=== PATIENT | female | born 1980 | race Caucasian/White ===

== ENCOUNTER → 2022-12-21 | Outpatient (CLI) | payer BC, SELFPAY ==
--- NOTE | 2022-12-21 16:09 | US_ITS ---
ACR Level 3 findings have been noted. An addendum which confirms receipt of the report will follow. INDICATION: Menorrhagia EXAMINATION: Ultrasound US Pelvis Non OB Complete With Transvaginal Imaging TECHNIQUE: Transabdominal and transvaginal pelvic ultrasound was performed. Grayscale, spectral waveform, and color flow Doppler evaluation of the adnexa. COMPARISON: None. FINDINGS: UTERUS: Anteverted. The uterus measures 18.1 x 6.7 x 11 cm. 3.1 x 2.7 x 3.3 cm fibroid. The endometrial stripe measures 12.5 mm in AP diameter which is within normal limits. RIGHT OVARY: A right adnexal heterogeneous mass with prominent Doppler flow measuring 17 x 11.4 x 15.8 cm obscures the ovary and displaces the uterus to the left. LEFT OVARY: 3.4 x 1.6 x 1.8 cm. Non-enlarged, normal echogenicity. There is normal arterial inflow and venous outflow present in the left ovary. Urinary bladder measures 723 mL. FREE FLUID: None. US/Pelvic (Non ) IMPRESSION: 17 cm right adnexal mass is suspicious for ovarian cancer. Recommend pelvic MRI. Overdistended urinary bladder. Electronically Signed: Anjel Banks MD at 16:56 EDT ,
== END | disposition home or self-care (01) ==
PROVIDERS: PCP Nurse Practitioner Family; Referring Provider Nurse Practitioner Women's Health; Visit Provider Nurse Practitioner Women's Health
DX: N92.0 Excessive and frequent menstruation with regular cycle (principal)
CPT/HCPCS: 76830; 76856

== ENCOUNTER → 2023-01-02 | Outpatient (CLI) | payer BC, SELFPAY ==
--- NOTE | 2023-01-02 17:45 | MRI_ITS ---
STUDY: MR PELVIS WITH T WITHOUT CONTRAST REASON FOR EXAM: Female, 42 years old. mass TECHNIQUE: Standardized fat and water weighted pulse sequences were obtained in all 3 orthogonal planes, pre-and post contrast administration. IV CLARISCAN 17mL was administered for the contrast portion of the examination. COMPARISON: December 21, 2022 pelvic ultrasound. FINDINGS: Left ovary measures 2.7 x 1.2 x 2.0 cm with multiple subcentimeter follicles, coronal series 9 image 10 to the left of the uterine body. Right ovary is located to the right of the uterine fundus, coronal series 9 image 9 and axial series 4 image 1 and 2, measuring 3.7 x 1.8 x 1.6 cm with dominant 1.4 cm and smaller 0.6 cm follicle. The uterus is deviated leftward with multiple nabothian cysts measuring up to 1.2 cm in size. Right anterior uterine body 3.0 cm myometrial enhancing fibroid.w the transitional zone measures 10 mm, mostly homogeneous with diffuse scattered subendometrial cysts. There is loss of the right transitional zone at the lower uterine segment and suggestion of contiguous myometrium extending to massive central pelvic solid mass (coronal series 9 image 16 and axial STIR series 6 image 23). The central pelvic solid enhancing mass measures 19.1 x 16.9 x 9.6 cm and fills remainder of the pelvis, displacing the uterus leftward, without evidence of invasion of surrounding structures. The mass does abut the inferior margin of the right ovary, reference coronal image 9 series 9 without surrounding claw-like ovarian parenchyma, favored to be separate from the ovary on axial series 4. There is a trace amount of free fluid in the right pelvis. No evidence of mass invasion within surrounding structures. 4 mm posterior inferior vaginal cyst compatible in location with Bartholin''s gland cyst. Unremarkable bladder, displaced anteriorly by the mass with homogeneous wall. Bowel is displaced peripherally without focal wall thickening. No acute osseous finding. Mild umbilical diastases with fat-containing umbilical hernia, without inflammation MRI/Pelvis W/WO Contrast IMPRESSION: Findings most consistent with 19.1 cm enhancing pedunculated subserosal lobulated leiomyoma extending from the right inferior uterine body. The uterus is displaced leftward and cephalad by the mass. Additional fundal uterine fibroid is also noted. No overt mass invasion of surrounding structures to suggest leiomyosarcoma though this is not excluded by imaging. 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 Right ovary approximates the mass though favored to be separate from it in the central lower abdomen adjacent to the uterine fundus. Normal ovarian follicles. Trace right pelvic free fluid. Small cervical nabothian cysts and posterior paravaginal likely Bartholin''s gland cyst without surrounding inflammation. Electronically Signed: Nasim Berry MD at 9:29 EDT ,
[2023-01-04 08:12] LABS: Carcinoembryonic Antigen 2.2 ng/mL (0.0-4.7)
== END | disposition home or self-care (01) ==
LOC: MRI 16:12
PROVIDERS: PCP Nurse Practitioner Family; Referring Provider Nurse Practitioner Women's Health; Visit Provider Nurse Practitioner Women's Health
DX: N94.89 Other specified conditions associated with female genital organs and menstrual cycle (principal)
CPT/HCPCS: 36415; 72197; 82378; 86304; A9575

== ENCOUNTER → 2023-01-07 | Outpatient (CLI) | payer BC, SELFPAY ==
[2023-01-07 14:39] LABS: Absolute Lymphocyte Count 1.41 X10^3/uL (0.83-4.51); Absolute Neutrophil Count 12.7 X10^3/uL (2.0-7.7); Basophil# 0.05 X10^3/uL; Basophil% 0.3 % (0-1); Eosinophil# 0.01 X10^3/uL; Eosinophils% 0.1 % (0-5); Hematocrit 51.4 % (37-47); Hemoglobin 16.8 g/dL (12.0-15.0); Lymphocyte # 1.41 X10^3/ul (0.83-4.51); Lymphocyte % 9.2 % (19-41); Mean Corp Hgb Conc 32.7 g/dL (32-36); Mean Corpuscular Hgb 29.6 pg (27.0-32.0); Mean Corpuscular Volume 90.5 fL (81-99); Mean Platelet Vol. 11.1 fl (6.2-12.0); Monocyte# 1.07 X10^3/uL; NRBC Flagged by Analyzer 0 % (0-5); Neutrophil # 12.68 X10^3/uL (2.7-7.7); Neutrophil % 83.1 % (47-70); Platelet Count 235 K/mm3 (150-450); RBC Distribution Width CV 12.8 % (11.6-14.6); RBC Distribution Width SD 42.5 fl (35.1-43.9); Red Blood Count 5.68 M/mm3 (4.2-5.4); White Blood Count 15.3 K/mm3 (4.4-11.0)
[2023-01-07 15:01] LABS: AST(SGOT) 17 U/L (15-37); Alanine Aminotransfer ALT/SGPT 24 U/L (13-56); Albumin, Serum 3.8 g/dL (3.2-5.0); Alkaline Phosphatase 78 U/L (45-117); Anion Gap 10 (5-15); BUN 7 mg/dL (7-18); BUN/Creat Ratio 9.2 RATIO (10-20); Calcium,Total 9.4 mg/dL (8.5-10.1); Chloride 105 mmol/L (98-107); Creatinine, Serum 0.76 mg/dL (0.55-1.02); EST Glomerular Filtration Rate 88 mL/min (>60); Est Glom Filt Rate - Afr Amer 107 mL/min (>60); Globulin 3.9 g/dL (2.2-4.2); Glucose 116 mg/dL (74-106); Potassium 3.6 mmol/L (3.5-5.1); Protein, Total 7.7 g/dL (6.4-8.2); Sodium Level 139 mmol/L (136-145)
[2023-01-07 15:29] LABS: NATERA MAILED SPECIMEN
== END | disposition home or self-care (01) ==
PROVIDERS: PCP Nurse Practitioner Family; Referring Provider Obstetrics & Gynecology; Visit Provider Obstetrics & Gynecology
DX: Z13.71 Encounter for nonprocreative screening for genetic disease carrier status (principal); Z80.3 Family history of malignant neoplasm of breast
CPT/HCPCS: 36415; 80053; 85025

== ENCOUNTER 2023-01-22 09:12 | Inpatient (IN) | payer BC, SELFPAY ==
[2023-01-16 12:45] LABS: Hematocrit 51.4 % (37-47); Hemoglobin 16.5 g/dL (12.0-15.0); Mean Corp Hgb Conc 32.1 g/dL (32-36); Mean Corpuscular Hgb 29.8 pg (27.0-32.0); Mean Corpuscular Volume 92.8 fL (81-99); Mean Platelet Vol. 11.5 fl (6.2-12.0); Platelet Count 207 K/mm3 (150-450); RBC Distribution Width CV 13.1 % (11.6-14.6); RBC Distribution Width SD 44.5 fl (35.1-43.9); Red Blood Count 5.54 M/mm3 (4.2-5.4); White Blood Count 9.1 K/mm3 (4.4-11.0)
[2023-01-22] VITALS (22 sets, daily range): BP systolic 92–146; BP diastolic 45–86; PULSE 66–140; RESP 16–20; TEMP 36.3–37.3; O2SAT 95–100; BMI 30.8; BMI 31.6
--- NOTE | 2023-01-22 06:07 | PCM.HP.BLA ---
History and Physical Intake Vital Signs ? 01/07/2313:02 01/07/2313:04 Height 5 ft 3 in 5 ft 3 in Weight: 175 lb 4 oz ? BMI 31.0 ? BP 128/83 H ? Intake Visit Reasons:?hyst. 9cm fibroid Community Health Program Representative Required: No Allergies erythromycin base Allergy (Mild, Verified 01/07/23 13:02) Rash Medications cholecalciferol (vitamin D3) 125 mcg (5,000 unit) capsule 125 mcg PO DAILY 10/15/22 [History Confirmed 10/15/22] calcium carbonate 600 mg calcium (1,500 mg) tablet (Calcium) 600 mg PO DAILY 01/07/23 [History Confirmed 01/07/23] ferrous sulfate 325 mg (65 mg iron) tablet (Feosol) 975 mg PO DAILY 01/07/23 [History Confirmed 01/07/23] fluticasone propionate 50 mcg/actuation nasal spray,suspension 1 spray intranasal DAILY PRN 01/07/23 [History Confirmed 01/07/23] medroxyprogesterone 5 mg tablet 5 mg PO .COMPLEX #45 tabs 01/07/23 [Rx Confirmed 01/07/23] PFSH Medical History?(Updated 01/14/23 @ 05:[address] Fara Pack MD) Anemia Vitamin D deficiency Surgical History?(Updated 10/15/22 @ 14:17 by Shruthi Pederson) S/P S/P ovarian cystectomy Family History?(Updated 10/15/22 @ 14:18 by Shruthi Pederson) Mother?? Myocardial infarction Social History?(Updated 10/15/22 @ 14:20 by Shruthi Pederson) household members:? spouse and children housing:? house number of children:? 2 current occupational status:? 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 Never smoker alcohol intake:? current alcohol intake frequency: holidays/special occasions only substance use type:? does not use seatbelt use:? always do you feel safe at home:? Yes additional social history:? - [employer]- Owns construction company HPI hyst. 9cm fibroid Details: KERI YUAN is a 42 year old who presents for abdominal pain and pelvic pressure, enlarged fibroid uterus.? she has a history of a fibroid in the past but now has enlarged to above her umbilicous and is causing daily significant pain and very heavy somewhat irregular menses.? she is due to start menses in a week. she feels an abdominal mass now and is tender, achy with low back pain referred and discomfort. Female Reproductive History Last Menstrual Period: 10/13/22 Questions: metorrhagia: Yes, sexually active: Yes, dyspareunia: No and PCB: No History ? ? ? 3 ? Elective abortions ? Hx Para ? ? ? 3 ? Spontaneous abortions ? Hx # Term Pregnancies ? Ectopic pregnancies ? Hx # Pregnancies ? Multiple births ? # of living children ? Past Pregnancies Del. Date Name GA/Weeks Outcome Route Bth Weight Infant Gen Labor Lgth Anesthesia Del Locatn Provider FOB Unknown Mayda 1996 ? Unknown Judy 2001 ? Unknown Joe 2004 ? ROS Const Constitutional: Reports fatigue; Denies weight gain or weight loss ENT ENT: Reports system reviewed and no additional complaints, except as documented Cardio Card: Denies chest pain Resp Resp: Denies cough or dyspnea GI GI: Reports as per HPI, abdominal pain and nausea; Denies constipation or vomiting : Denies nipple discharge, urinary frequency, urinary incontinence, urinary hesitancy, urinary urgency, vaginal discharge, vaginal dryness, vaginal odor or vaginal pruritus Musc Musc: Reports back pain; Denies arthralgias or muscle weakness Skin Skin/Breast: Denies alopecia, change in hair, dry skin, breast mass, breast pain, breast skin changes or nipple discharge Neuro Neuro: Reports system reviewed and no additional complaints, except as documented Psych Psych: Reports system reviewed and no additional complaints, except as documented Endo Endo: Denies cold intolerance, excessive sweating, heat intolerance or polydipsia Topher/Lymph Hematologic/Lymphatic: Denies easy bleeding, Denies easy bruising and Denies lymphadenopathy Exam Const General: cooperative, healthy appearing, comfortable and no acute distress Orientation: alert [facility] Head: normal to inspection and normocephalic Ears: hearing grossly normal bilaterally and external ears normal Nose: external nose normal and nares normal Face and sinus: normal facial exam Neck Neck: normal visual inspection and no lymphadenopathy Thyroid: thyroid normal Chest Chest palpation & inspection: normal inspection of the chest Resp Effort & Inspection: normal respiratory effort Auscultation: clear to auscultation bilaterally Cardio Rate: regular rate Rhythm: regular rhythm Heart Sounds: S1 normal and S2 normal GI Inspection: normal to inspection and non-distended Palpation: soft, no hepatosplenomegaly and mass (enlarged uterus 23 cm) Musc Other: gross motor intact no deficits, full bilateral strength Skin General: no rashes or lesions noted Neuro General: patient alert, patient awake, moves all extremities and no focal motor deficits Motor: muscle tone normal throughout Extrem General: normal to inspection and no pedal edema Psych Appearance: grossly normal Mental Status: mental status grossly normal Affect: normal affect Speech and Movement: speech and movement normal Coding Level of Care Code Off vis,est,level 5 Diagnoses Uterine fibroid? D25.9 Menorrhagia with regular cycle? N92.0 Assessment and Plan Assessment and Plan (1) Uterine fibroid: ?Status:?Acute ?Comment: MRI:19cm pedunculated, plan vertical skin incision, TAHBS. (2) Menorrhagia with regular cycle: ?Status:?Acute ? ? ? Orders: Orders Comprehensive Metabolic Profil 01/07/23 N93.9 - Abnormal uterine and vaginal bleeding, unspecified ? CBC W/Diff, Automated 01/07/23 N93.9 - Abnormal uterine and vaginal bleeding, unspecified ? Referrals Gynecologic Oncology ? D25.9 - Leiomyoma of uterus, unspecified, N92.0 - Excessive and frequent menstruation with regular cycle ? Medications: New medroxyprogesterone ?once daily and if you start to bled increase to twice daily 45 tabs 0RF ? ? Plan clearance by gynecology oncology first, and if able then will proceed with local surgery.? plan vertical abdominal hysterectomy After discussing the patient's diagnosis and treatment plan options, patient wishes to proceed with surgical management.? I have discussed with the patient the risks, benefits, and alternatives of the procedure which include but are not limited to risks of anesthesia, bleeding, infection, possible damage to bowel, bladder, or surrounding vasculature which could lead to additional surgery to evaluate any complications.? Patient agrees to procedure and wishes to proceed.? ACOG/uptodate references given for additional information regarding procedure.? UPDATE- I have seen the patient and performed any clinically relevant updates to the history and physical exam. Fara Pack MD
[2023-01-22 09:43] LABS: Internal QC Validated? YES +Cl - CLEAR BKGD; Pregnancy, Urine Negative Negative
[2023-01-22] MEDS: dexAMETHasone 4 MG/ML Vial 8 MG IV (09:45)
[2023-01-22] MEDS: Lactated Ringers 1,000 ML 40 ML IV (09:49)
[2023-01-22] MEDS: Magnesium 1 GM over 15 mins IV (09:49)
[2023-01-22] MEDS: Celecoxib 200 MG Capsule 400 MG PO (10:14)
[2023-01-22] MEDS: Phenazopyridine 95 MG Tablet 190 MG PO (10:14)
[2023-01-22] MEDS: Acetaminophen 500 MG Tablet 1000 MG PO ×2 (10:14→22:08)
[2023-01-22] MEDS: Gabapentin 600 MG Tablet PO (10:14)
[2023-01-22] MEDS: Enoxaparin 40 MG/0.4 ML Syringe SC (10:15)
[2023-01-22] MEDS: Scopolamine 1mg/72hr Patch 1 PATCH TD (10:15)
[2023-01-22 10:18] LABS: Absolute Lymphocyte Count 0.89 X10^3/uL (0.83-4.51); Absolute Neutrophil Count 7.1 X10^3/uL (2.0-7.7); Basophil# 0.03 X10^3/uL; Basophil% 0.3 % (0-1); Eosinophil# 0.02 X10^3/uL; Eosinophils% 0.2 % (0-5); Hematocrit 47.5 % (37-47); Hemoglobin 16.1 g/dL (12.0-15.0); Lymphocyte # 0.89 X10^3/ul (0.83-4.51); Lymphocyte % 10.4 % (19-41); Mean Corp Hgb Conc 33.9 g/dL (32-36); Mean Corpuscular Hgb 30.5 pg (27.0-32.0); Mean Platelet Vol. 10.9 fl (6.2-12.0); Monocyte# 0.54 X10^3/uL; Monocyte% 6.3 % (0-10); NRBC Flagged by Analyzer 0 % (0-5); Neutrophil # 7.09 X10^3/uL (2.7-7.7); Neutrophil % 82.7 % (47-70); Platelet Count 196 K/mm3 (150-450); RBC Distribution Width SD 42.9 fl (35.1-43.9); Red Blood Count 5.28 M/mm3 (4.2-5.4); White Blood Count 8.6 K/mm3 (4.4-11.0)
--- NOTE | 2023-01-22 10:21 | OP.PCM_ITS ---
Problems Associated Problem List Diagnoses (1) Genetic testing of female: (2) Menorrhagia with regular cycle: (3) Uterine fibroid: Report of Operation Date of Procedure: 01/22/23 Pre-Operative Diagnosis: see problem list Post-Operative Diagnosis: same Surgery/Procedure Performed:: TAHBS cystoscopy 4 hours of surgery, primarily due to adhesiolysis around fibroid and dissection of fibroid and isolation of vasulature Description of Surgical Findings:: Enlarged fibroid uterus right broad ligament fibroid extending off of the right cervix with attachments laterally and inferiorly and to the vesicouterine peritoneum with pelvic congestion. Normal ovaries bilaterally. Surgeon: Fara Pack supervisor joiners: Oxana Bo supervisor joiners: Petra Pat Specimen's removed: uterus tubes uterus 260 g fibroid 1140 g Estimated Blood Loss (mL): 1200 Fluids Replaced: crystalloid Description of Procedure: The patient was taken to the operating room and placed under general anesthesia in the dorsal supine position. She was prepped and draped in the normal sterile fashion. Kamara catheter was placed in the bladder SCDs were on and preoperative antibiotics were given. A Pfannenstiel skin incision was made with the scalpel and carried through the underlying layer of the fascia with the scalpel, fascia was nicked in the midline, incision extended laterally. Rectus bellies were di ssected off superiorly and inferiorly sharply and bluntly and peritoneum entered digitally, incision stretched laterally and the retractor was placed after the bowel was packed away. The uterus was identified and noted to be significantly enlarged approximately 12-14 cm and displaced off to the left side with normal ovaries bilaterally and an extremely large, bigger than the uterus, right broad ligament fibroid was noted taking up the entire right hemipelvis the into the ovarian fossa and attaching down the entire right length of the cervix extending down to the level of the cervix. Extended anteriorly across the front of the uterine corpus distorting the vesicouterine peritoneum and significant pelvic congestion and increased vasculature was noted in all the areas. 1 small omental to intra-abdominal wall adhesion was taken down with the LigaSure. It was felt like it was able to be mobilized and therefore with consultation with another physician decision was made to proceed with hysterectomy as previously decided. The ovaries were noted to be within normal limits. The fallopian tubes were elevated bilaterally and the mesosapinx transected with the ligasure. The round ligaments were transected bilaterally and suture ligated and the broad ligament was opened up and the utero-ovarian ligament vessels were clamped with the LigaSure sealer device. The peritoneum was opened up over the broad ligament fibroid and 3 extensive adhesiolysis the fibroid was continued to be shelled out. This was done with both blunt sharp and electrocautery dissection. Different vascular pedicles were encountered and either transected with the LigaSure device or clamped cut and suture-ligated with 0 Monocryl suture. Good attention was paid to keeping the bladder off of the fibroid in the uterine corpus. Attention was also paid to try and operate medially to where the ureter was felt to be located since the anatomy was so distorted due to the enlarged broad ligament fibroid. Extensive dissection which required 2-2 and half hours alone to be able to skeletonize and shell out the fibroid and skeletonized their vascular attachments in multiple areas both in the cul-de-sac, the cervical attachment, and the vesicouterine peritoneum and pelvic sidewall on the right side. Eventually the uterine arteries were clamped cut and either ligated with LigaSure were suture-ligated with the Monocryl bilaterally down to the level of the cervix. The fibroid was amputated off of the cervix which was noted to be significantly elongated. Good visualization of the bladder flap was made and Z clamps were used to clamp underneath the mucosa where the cervixes and the uterus was amputated off the pedicles. Vaginal cuff sewn with 0 Monocryl and then oversewn with 0 Vicryl. Some areas of pelvic congestion and bleeding were noted over the areas of dissection where the fibroid was present in the vesicouterine peritoneum and in the right pelvic sidewall and therefore stitches of 3-0 Vicryl and 3-0 Monocryl were used to obtain excellent hemostasis. The areas were oversewn due to the raw appearance. Floseal was also applied. The bladder was backfilled with blue dye and no spill was noted intra-abdominally. Cystoscopy was performed and bilateral ureteral spray and bladder integrity were confirmed. Again the pelvis was checked and some areas were noted to still be raw and had bleeding over the cuff and bladder peritoneum. They were oversewn with 2-0 Vicryl. Another layer of Floseal was applied and again the area checked and noted to have excellent hemostasis. The peritoneum was closed with 3-0 Monocryl fascia closed with 0 PDS subcutaneous tissue reapproximated with 3- 0 Monocryl and the skin closed with 4-0 Monocryl. Patient was awoken and taken recovery in stable condition. Multi Select Codes Urinary/Genital Urinary/Genital CPT Codes: 01517 Cystoscopy and [address]003 DERRICK
--- NOTE | 2023-01-22 10:25 | PCM.DC ---
Discharge Instructions Diet Discharge Diet: No restrictions Activity Discharge Activity: Return to Normal Activity, May Drive (when pain free and off narcotic pain meds), May Shower and May Take a Tub Bath (in 4 weeks) May resume sexual activity in: 6 weeks Weight Bearing Status: Full weight bearing Lifting Restrictions: under 30 lbs for 6 weeks Dressing / Incision Call your doctor if your incision/area has: Continuous Slow Oozing, Sudden Increased Bleeding, Increased Pain/ Swelling, Increased Redness, Foul Smelling Discharge and - Call your doctor if you observe: Fever of 101 or Higher, Using more than 1 pad per hour, Shortness of breath, Chest pain and Uncontrolled pain Suture Line Care: Avoid Pulling/Pushing and Avoid Pinching/Bending Change Dressing in: 1 week (leave open to air after removed) Remove Dressing in: 1 week (if present) Cleanse incision/area with: Soap & Water and Keep Dressing Clean & Dry Follow Up Care Please Follow Up With: Fara Pack MD When: Call to make an appointment with your doctor for a postop visit in 2 and 6 weeks. Test Results: Test results from this visit will be discussed in further detail at your follow-up appointment, if applicable. Discharge Plan Admission Admit Date/Time: 01/22/23 09:12 Attending Provider: Fara Pack Primary Care Provider: Karley Ogden Discharge Orders/Prescriptions Prescriptions: New oxycodone-acetaminophen [Percocet] 5-325 mg tablet 1 tab PO Q6H PRN (Reason: pain) 7 Days Qty: 20 0RF naproxen [naproxen] 500 mg tablet 500 mg PO BID PRN PRN (Reason: Pain) Qty: 30 1RF Continued ferrous sulfate [Feosol] 325 mg (65 mg iron) tablet 975 mg PO DAILY calcium carbonate [Calcium 600] 600 mg calcium (1,500 mg) tablet 600 mg PO DAILY fluticasone propionate 50 mcg/actuation spray,suspension 1 spray intranasal DAILY PRN (Reason: ALLERGIES) Rx Instructions: administer into each nostril ergocalciferol (vitamin D2) 1,250 mcg (50,000 unit) capsule 50,000 unit PO MO Label Comments: take 1 capsule by mouth every week Discontinued medroxyprogesterone 5 mg tablet 5 mg PO .COMPLEX Rx Instructions: three per day since 01/19/2023 Referrals / Follow Up: Karley Ogden, PRODUCT MANAGER-C [Primary Care Provider] -
[2023-01-22] MEDS: Cefazolin 2 GM in 0.9% Normal Saline 100 ML IV ×2 (10:37→19:16)
[2023-01-22 11:10] LABS: Bedside Glucose 130 mg/dL (74-106)
--- NOTE | 2023-01-22 11:10 | HYST_PTH ---
PATIENT: KERI YUAN LOC: MS3 U#:[id number] AGE/SX: 42/F ROOM: [facility] RE01/22/[address]: Dr. Fara Pack MD : 1980 BED: 1 DIS: 01/24/2023 SPEC #: [id number] RECD: 01/22/23 14:31 STATUS: ANAMARIA WELDON #: [id number] TASNEEM: 01/22/23 11:[address]: Fara Pack DEPT: SURGICAL PATHOLOGY RECD BY: Nimisha Landry ENTERED: 01/23/23 07:47 SP TYPE: HYSTERECT OTHR DR: Karley Ogden, MANAGER LABOR DELIVERY-C Tissues: Uterus, NOS Procedures: Surgery Specimen Level V HEADER OPERATION: ERAS, total abdominal hysterectomy, salpingectomy PRE-OP DIAGNOSIS: Uterine fibroid, menorrhagia with regular cycle TISSUE SUBMITTED: Uterus, cervix, bilateral fallopian tubes, fibroid MICROSCOPIC DIAGNOSIS Uterus, cervix, bilateral fallopian tubes and fibroid, total abdominal hysterectomy and bilateral salpingectomy: Cervix ? mild chronic cystic cervicitis. - Benign endocervical polyp (0.6 cm in greatest dimension). Endometrium ? focal changes consistent with exogenous hormone effect. Myometrium ? leiomyomas (largest measuring 15.0 cm in greatest dimension). - Adenomyosis. Bilateral fallopian tubes - no pathologic diagnosis. SJ:kush 01/24/2023 MICROSCOPIC DESCRIPTION Slides are reviewed. GROSS DESCRIPTION Received in fixative is one container labeled with the patient's name and designated uterus, cervix, bilateral fallopian tubes and fibroid. The specimen consists of a hysterectomy specimen consisting of uterus with cervix, detached nodular tissue and detached bilateral fallopian tubes. The uterus with cervix and detached nodular mass weighs 1116 gm. Detached nodular mass weighs 855 gm. A focal area of defect is noted in the uterus and the anterior surface at the lower uterine segment, most likely the site of detached nodular mass. The uterus with cervix measures 15.0 x 8.5 x 8.5 cm. Detached nodular mass measures 15.0 x 15.0 x 10.0 cm. The serosal surface is roegrs, glistening. The ectocervical mucosa is unremarkable. The external os is pinpoint in contour. The endocervical canal measures 5.0 cm in length and the endocervical mucosa is rogers, glistening and unremarkable. Sections of the cervix reveal a few cysts filled with mucoid material. A small polyp is noted in the posterior endocervical canal measuring 0.6 cm in greatest dimension. The triangular endometrial cavity measures 6.0 cm in length and up to 3.0 cm in width. The endometrium measures up to 0.2 cm in thickness. Sections of the uterine wall reveal multiple intramural nodular masses. The largest mass measures 3.0 cm in greatest dimension. The uninvolved uterine wall measures up to 3.0 cm in thickness. The detached fallopian tubes are not identified as right or left and measures 4.0 cm in length and 0.8 cm in diameter and 5.0 cm in length and 0.9 cm in diameter. The fimbrial end is identified. Sections reveal unremarkable cut surfaces. Stationary Steam Engineer sections are submitted in 12 cassettes as follows: 1 - anterior cervix, 2??posterior cervix and endocervical polyp, 3 & 4 - anterior uterine wall, 5 & 6 - posterior uterine wall, 7 - largest intramural mass, 8??smaller intramural nodular masses, 9 & 10 - detached nodular mass, 11 - one fallopian tube, 12??second fallopian tube. / GERALDO:kush 01/23/2023 TC:1 CPT: 48159
[2023-01-22] MEDS: Vasopressin 20 UNITS/ML Vial (13:00)
[2023-01-22] MEDS: Isosulfan Blue 1% 5 ML Vial (14:00)
[2023-01-22] MEDS: Ondansetron 4 MG/2 ML Vial IV (15:06)
[2023-01-22] MEDS: Ketorolac 30 MG/ML Syringe IV ×2 (15:55→22:09)
[2023-01-22 17:33] LABS: Hematocrit 37.7 % (37-47); Hemoglobin 12.2 g/dL (12.0-15.0); Mean Corp Hgb Conc 32.4 g/dL (32-36); Mean Corpuscular Hgb 29.6 pg (27.0-32.0); Mean Corpuscular Volume 91.5 fL (81-99); Mean Platelet Vol. 11.3 fl (6.2-12.0); Platelet Count 176 K/mm3 (150-450); RBC Distribution Width SD 42.6 fl (35.1-43.9); Red Blood Count 4.12 M/mm3 (4.2-5.4); White Blood Count 25.1 K/mm3 (4.4-11.0)
[2023-01-22] MEDS: Lactated Ringers 500 ML 999 ML IV (18:20)
--- NOTE | 2023-01-22 18:22 | CT_ITS ---
STUDY: CTA CHEST REASON FOR EXAM: Female, 42 years old. TACHY POSTOP RADIATION DOSAGE (If Supplied By Facility): CTDIvol = ( 13.28 ) mGy, DLP = ( 348.75 ) mGycm TECHNIQUE: The examination was performed with the intravenous administration of IV 100mL Isovue-370. Post-processing of the angiographic images was performed, with multiplanar reformation and 3D reconstruction. Individualized dose optimization techniques were used for this CT. COMPARISON: FINDINGS: Normal enhancement of the main pulmonary artery and right and left pulmonary arteries. Normal enhancement of the bilateral peripheral pulmonary arteries. There is no demonstrated pulmonary embolism. Normal thoracic aorta and visualized great vessels. There is no demonstrated aortic dissection. Normal heart and pericardium. Normal mediastinum. Normal hilar regions. Normal visualized trachea and bronchi. Moderate bibasilar atelectasis or fibrosis. Normal chest wall structures. Normal osseous structures. Normal visualized upper abdomen. CT/CTA Chest W/WO Contrast IMPRESSION: No demonstrated pulmonary embolism or arterial dissection. Moderate bibasilar atelectasis or less likely fibrosis. Electronically Signed: Matt Joseph MD, ARGELIA at 19:15 EDT ,
--- NOTE | 2023-01-22 18:31 | PCM.PN.BLA ---
Progress Note patient evaluated due to tachycardia, she is feeling anxious but denies cp or sob, pain fairly controlled, vaginal bleeding minimal, incision intact. pulse ox 9% heart: sinus tach nl s1s2 and pulm: ctab abdomen: soft appropriate TTP. cbc reviewed and appropriate drop due to 1200cc blood loss. repeat cbc ordered in a few hours to confirm stability, IVF bolus being given. recommend CT of chest to rule out PE. will give .5 ativan to help with anxiety, monitor vitals and symptoms. reviewed plan with x ray control equipment repairer physican and nursing, agreed.
--- NOTE | 2023-01-22 18:53 | SUR.PHASEI ---
UP TO CT SCAN WITH THIS NURSE HR REMAINS IN THE 130'S PT HAS NO PAIN, NO SOB, NO DYSPNEA, MILD ABD CRAMPING, URINE OUTPUT APPROX 100CC IN BAG-EMPTIED AROUND 1730 FOR 250CC, PT REPORTS THAT HAS SEVERE ANXIETY AT HOME. ATIVAN PARTIALLY EFFECTIVE SEE EMAR. DR ALFORD AWARE AWAITING CT RESULTS AND 1929 CBC RESULTS.
[2023-01-22] MEDS: LORazepam 2 MG/ML Syringe 0.5 MG IV (19:02)
[2023-01-22 19:51] LABS: Hematocrit 36.5 % (37-47); Mean Corp Hgb Conc 32.9 g/dL (32-36); Mean Corpuscular Hgb 29.9 pg (27.0-32.0); Mean Platelet Vol. 11.3 fl (6.2-12.0); Platelet Count 199 K/mm3 (150-450); RBC Distribution Width SD 43.4 fl (35.1-43.9); Red Blood Count 4.01 M/mm3 (4.2-5.4); White Blood Count 26.2 K/mm3 (4.4-11.0)
--- NOTE | 2023-01-22 20:00 | CPS ---
pt not in room
[2023-01-22] MEDS: Docusate Sodium 100 MG Capsule PO (22:09)
[2023-01-23] VITALS (7 sets, daily range): BP systolic 100–108; BP diastolic 62–90; PULSE 93–104; RESP 16–18; TEMP 36.7–37.1; O2SAT 94–99
[2023-01-23] MEDS: Cefazolin 2 GM in 0.9% Normal Saline 100 ML IV ×4 (00:53→17:14)
[2023-01-23] MEDS: 0.9% Saline Lock 10 ML Syringe IV ×2 (01:04→21:18)
[2023-01-23] MEDS: Ketorolac 30 MG/ML Syringe IV ×4 (05:31→21:18)
[2023-01-23] MEDS: Acetaminophen 500 MG Tablet 1000 MG PO ×4 (05:31→21:17)
[2023-01-23 07:03] LABS: Hematocrit 33.5 % (37-47); Hemoglobin 10.7 g/dL (12.0-15.0); Mean Corp Hgb Conc 31.9 g/dL (32-36); Mean Corpuscular Hgb 29.9 pg (27.0-32.0); Mean Corpuscular Volume 93.6 fL (81-99); Mean Platelet Vol. 11.6 fl (6.2-12.0); Platelet Count 170 K/mm3 (150-450); RBC Distribution Width CV 13.1 % (11.6-14.6); RBC Distribution Width SD 44.8 fl (35.1-43.9); Red Blood Count 3.58 M/mm3 (4.2-5.4); White Blood Count 12.7 K/mm3 (4.4-11.0)
--- NOTE | 2023-01-23 07:47 | PCM.PN.OB ---
Subjective Subjective patient recovering well, denies CP, SOB, N, or V. patient has been up to bedside ,tolerating adequate po, and pain is controlled with oral medications. Becker cath in place and draining clear urine. Had some tachycardia in night, states feels better with ativan. Neg CT. Objective Data Objective Data Vital Signs: Vital Signs Temp Pulse Resp BP Pulse Ox O2 Del Method O2 Flow Rate 98.1 F 102 H 18 100/65 95 Room Air 2 01/23/23 05:44 01/23/23 05:44 01/23/23 05:44 01/23/23 05:44 01/23/23 05:44 01/23/23 05:44 01/22/23 20:00 Oxygen Flow Rate (L/min) 2 Oxygen Delivery Method Room Air Weight: 178 lb 5.663 oz Body Mass Index (BMI) 31.6 Intake & Output: Intake and Output for Last 24 Hours 01/21/23 01/22/23 01/23/23 23:59 23:59 23:59 Intake Total 1822 / 1822 220 / 220 Output Total 440 / 1240 1200 / 1200 Balance 1382 / 582 -980 / -980 Lab / Micro Data Result Diagrams: 01/23/23 06:30 Labs: Laboratory Results - last 24 hr 01/22/23 09:30: Urine Test Negative 01/22/23 09:55: POC Glucose 130 H 01/22/23 10:12: WBC 8.6, RBC 5.28, Hgb 16.1 H, Hct 47.5 H, MCV 90.0, MCH 30.5, MCHC 33.9, RDW Std Deviation 42.9, RDW Coeff of Davidson 13.0, Plt Count 196, MPV 10.9, Immature Gran % (Auto) 0.100, Neut % (Auto) 82.7 H, Lymph % (Auto) 10.4 L, Treasure % (Auto) 6.3, Eos % (Auto) 0.2, Baso % (Auto) 0.3, Absolute Neuts (auto) 7.1, Absolute Lymphs (auto) 0.89, Nucleated RBC % 0 01/22/23 17:27: WBC 25.1 H, RBC 4.12 L, Hgb 12.2, Hct 37.7, MCV 91.5, MCH 29.6, MCHC 32.4, RDW Std Deviation 42.6, RDW Coeff of Davidson 13.0, Plt Count 176, MPV 11.3 01/22/23 19:30: WBC 26.2 H, RBC 4.01 L, Hgb 12.0, Hct 36.5 L, MCV 91.0, MCH 29.9, MCHC 32.9, RDW Std Deviation 43.4, RDW Coeff of Davidson 13.0, Plt Count 199, MPV 11.3 01/23/23 06:30: WBC 12.7 H, RBC 3.58 L, Hgb 10.7 L, Hct 33.5 L, MCV 93.6, MCH 29.9, MCHC 31.9 L, RDW Std Deviation 44.8 H, RDW Coeff of Davidson 13.1, Plt Count 170, MPV 11.6 Radiography Diagnostic Testing: Radiology Impression Chest CTA 01/22/23 18:22 IMPRESSION: No demonstrated pulmonary embolism or arterial dissection. Moderate bibasilar atelectasis or less likely fibrosis. Electronically Signed: Matt Joseph MD, ARGELIA at 19:15 EDT , Physical Exam Const alert, oriented x3 and no apparent distress Resp normal respiratory effort GI soft to palpation and non-distended Inspection: incision other (dressing dry and intact) Narrative: Minimal drainage on peripad Bladder / Kidney Exam: catheter in place Assessment & Plan (1) S/P abdominal hysterectomy: COMMENT: TAHBS fibroids PLAN: Plan patient is s/p DERRICK BS POD 1 1. routine ERAS protocol postop care- increase ambulation,DC becker, encourage oral intake and oral control of pain. lovenox and scds for dvt prophylaxis, patient may discharge to home today if stable.
[2023-01-23] MEDS: Ensure Plus High Protein 120 ML LIQUID PO ×3 (09:38→17:14)
[2023-01-23] MEDS: Enoxaparin 40 MG/0.4 ML Syringe SC (09:39)
[2023-01-23] MEDS: Docusate Sodium 100 MG Capsule PO ×2 (09:43→21:17)
--- NOTE | 2023-01-23 10:10 | CASEMGMT ---
BRANDEE CHACON Assessment: Face to Face with pt for initial transition planning/care coordination assessment. RN OSWALDO introduced self and role at [facility], pt voices understanding and consents to assessment. Pt is A/O x4 and answers all questions appropriately at this time. Pt lying in bed with her at bedside. Care providers, pharmacy, and demographics verified/updated. 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 Pt reports she was I in ADL's prior to surgery and denies concerns at home. Transportation: Pt drives self and denies concerns with transportation. Pt or dtr is able to transport her to medical appts post surgery. DME/HHC/SNF: Pt has a cane at home but does not use AD. Pt denies hx of HHC or SNF stays. Pt states no concerns with going home at time of dc. Pt states no further concerns/needs. CM to follow. Advised pt to ask CM if any further question/concerns/needs arise, voices understanding. Pt Goal: Home Plan: Home
--- NOTE | 2023-01-23 10:37 | PHA.DC.MC ---
Pharmacy Service has performed discharge medication reconciliation and counseling for this patient. 1. NAPROXEN 500MG PO BID PRN PAIN 2. OXYCODONE/ACETAMINOPHEN 5/325MG 1T PO Q6H PRN PAIN The patient's discharge medication list was reviewed for discrepancies and discrepancies were resolved. Home Medications calcium carbonate 600 mg calcium (1,500 mg) tablet (Calcium) 600 mg PO DAILY SUPPLEMENT 01/07/23 ferrous sulfate 325 mg (65 mg iron) tablet (Feosol) 975 mg PO DAILY SUPPLEMENT 01/07/23 fluticasone propionate 50 mcg/actuation nasal spray,suspension 1 spray intranasal DAILY PRN ALLERGIES 01/07/23 ergocalciferol (vitamin D2) 1,250 mcg (50,000 unit) capsule 50,000 unit PO MO SUPPLEMENT 01/15/23 naproxen 500 mg tablet 500 mg PO BID PRN PRN Pain #30 tabs 01/22/23 oxycodone-acetaminophen 5 mg-325 mg tablet (Percocet) 1 tab PO Q6H PRN pain 7 days #20 tabs 01/22/23 The patient was counseled on the following discharge medications and changes in medications for homegoing were reviewed. The Reason for Use, instructions for use, and potential side effects were reviewed for all new medications. The patient's questions regarding all of their medications were answered. The patient was able to verbally demonstrate an understanding of their discharge medications.
[2023-01-24 01:42] VITALS: PULSE 89; RESP 16; O2SAT 94
[2023-01-24 02:46] VITALS: PULSE 88; O2SAT 94
[2023-01-24 03:39] VITALS: BP 112/87; PULSE 93; RESP 16; TEMP 37.2; O2SAT 95
[2023-01-24] MEDS: 0.9% Saline Lock 10 ML Syringe IV (03:46)
[2023-01-24] MEDS: Acetaminophen 500 MG Tablet 1000 MG PO (06:10)
[2023-01-24 08:06] VITALS: O2SAT 96
[2023-01-24 08:39] VITALS: BP 125/74; PULSE 91; RESP 18; TEMP 36.9; O2SAT 97
--- NOTE | 2023-01-24 08:42 | PCM.PN.OB ---
Subjective Subjective Patient doing well without complaints. Tolerating PO. Ambulating without difficulty. Denies chest pain, shortness of breath, calf pain/swelling, fevers, chills, lightheadedness. Objective Data Objective Data Vital Signs: Vital Signs Temp Pulse Resp BP Pulse Ox O2 Del Method O2 Flow Rate 98.4 F 91 18 125/74 H 97 Room Air 2 01/24/23 08:39 01/24/23 08:39 01/24/23 08:39 01/24/23 08:39 01/24/23 08:39 01/24/23 08:39 01/23/23 13:15 Oxygen Flow Rate (L/min) 2 Oxygen Delivery Method Room Air Weight: 178 lb 5.663 oz Body Mass Index (BMI) 31.6 Intake & Output: Intake and Output for Last 24 Hours 01/22/23 01/23/23 01/24/23 23:59 23:59 23:59 Intake Total 1822 / 1822 840 / 1040 200 / 200 Output Total 440 / 1240 1200 / 1200 Balance 1382 / 582 -360 / -160 200 / 200 Lab / Micro Data Result Diagrams: 01/23/23 06:30 ROS Constitutional Constitutional: Reports systems reviewed and no addt'l complaints, except as documented Cardiovascular Cardiovascular: Reports systems reviewed and no addt'l complaints, except as documented Respiratory/Chest Respiratory/Chest: Reports systems reviewed and no addt'l complaints, except as documented Gastrointestinal Gastrointestinal: Reports systems reviewed and no addt'l complaints, except as documented Physical Exam Const alert, oriented x3 and no apparent distress HEENT Head and Scalp: atraumatic Resp normal respiratory effort GI soft to palpation and non-tender Assessment & Plan (1) S/P abdominal hysterectomy: COMMENT: TAHBS fibroids (2) Menorrhagia with regular cycle: (3) Uterine fibroid: COMMENT: MRI:19cm pedunculated, plan vertical skin incision, TAHBS. PLAN: Plan patient is s/p tahbs POD 2 1. routine ERAS protocol postop care- increase ambulation, encourage oral intake and oral control of pain. lovenox and scds for dvt prophylaxis, patient stable for discharge to home.
--- NOTE | 2023-01-24 18:49 | PCM.DC.BLA ---
Discharge Summary Date of Admission: 01/22/23 Date of Discharge: 01/24/23 Summary: Patient was admitted for total abdominal hysterectomy bilateral salpingectomy. Patient underwent surgery and fibroid was noted to be located within the right broad ligament which increased to the surgical difficulty greatly and due to the extra vasculature and surgical complexity the blood loss from the surgery was increased. Surgery was 4 hours in length and then postoperatively the patient did have a mild anemia but counts were stable, she developed some tachycardia and had a CT of the chest that was negative for PE. Otherwise she had a routine recovery with the return of bowel and bladder function was ambulating well tolerating p.o. and had adequate pain control with oral medications and was stable for discharge to home on postop day #2. uterine fibroids, enlarged uterus 1200g at time of hysterectomy, ebl 1200cc with anemia secondary to blood loss after surgery. Meaningful Use Info Meaningful Use Diagnoses (Choose all that apply): None applicable Discharge Plan Admission Admit Date/Time: 01/22/23 09:12 Attending Provider: Fara Pack Primary Care Provider: Karley Ogden Discharge Orders/Prescriptions Prescriptions: New oxycodone-acetaminophen [Percocet] 5-325 mg tablet 1 tab PO Q6H PRN (Reason: pain) 7 Days Qty: 20 0RF naproxen [naproxen] 500 mg tablet 500 mg PO BID PRN PRN (Reason: Pain) Qty: 30 1RF Continued ferrous sulfate [Feosol] 325 mg (65 mg iron) tablet 975 mg PO DAILY calcium carbonate [Calcium 600] 600 mg calcium (1,500 mg) tablet 600 mg PO DAILY fluticasone propionate 50 mcg/actuation spray,suspension 1 spray intranasal DAILY PRN (Reason: ALLERGIES) Rx Instructions: administer into each nostril ergocalciferol (vitamin D2) 1,250 mcg (50,000 unit) capsule 50,000 unit PO MO Label Comments: take 1 capsule by mouth every week Discontinued medroxyprogesterone 5 mg tablet 5 mg PO .COMPLEX Rx Instructions: three per day since 01/19/2023 No Action lorazepam [Ativan] 1 mg tablet 1 mg PO TID PRN (Reason: anxiety) Qty: 14 0RF Referrals / Follow Up: Karley Ogden, [employer] EXAMINER-C [Primary Care Provider] - Disposition Disposition (needs filled in before D/C Order can be placed): Home, Self Care
== END 2023-01-24 10:03 | disposition home or self-care (01) | DRG 742 ==
LOC: ACINP 09:13 → MS3 15:36
PROVIDERS: Anesthesiology; Admitting Provider Obstetrics & Gynecology; PCP Nurse Practitioner Family; Referring Provider Obstetrics & Gynecology; Visit Provider Obstetrics & Gynecology
PROC: 0UT90ZZ Resection of Uterus, Open Approach (ICD-10-PCS; CPT 58150; principal; 2023-01-22 10:50)
DX: D25.9 Leiomyoma of uterus, unspecified (principal); D62 Acute posthemorrhagic anemia; E55.9 Vitamin D deficiency, unspecified; R00.0 Tachycardia, unspecified; N92.1 Excessive and frequent menstruation with irregular cycle; Z79.899 Other long term (current) drug therapy; N93.9 Abnormal uterine and vaginal bleeding, unspecified
CPT/HCPCS: 36415; 71275; 81025; 82962; 83735; 85025; 85027; 86850; 86900; 86901; 88307; 94668; J7120; Q9967; A4216; J2405; J3475; J3490; Q9968

== ENCOUNTER → 2024-04-30 | Outpatient (CLI) | payer OTHER, SELFPAY ==
--- NOTE | 2024-04-30 09:51 | BI_ITS ---
MAMMOGRAPHY - BILATERAL SCREENING REASON FOR EXAM: Female, 43 years old. Routine annual screening examination. PERTINENT HISTORY: Grandmother with breast cancer. Aunt with breast cancer. TECHNIQUE: Digital bilateral breast [place] (3D mammographic acquisition) in the CC and MLO projections. 2-D mediolateral oblique (MLO) and craniocaudad (CC) views of both breasts were obtained. CAD: Full Field Digital Mammography with Computer Added Detection was performed. COMPARISON: Comparison is made with prior outside examination of July 17, 2021. FINDINGS: Breast Composition: The breasts are heterogeneously dense, which may obscure small masses. There are no dominant masses or suspicious calcifications. No other significant abnormalities are identified. BI/SCRN MAMM (CAD)W/[place] BILAT IMPRESSION: Stable bilateral screening mammogram. Yearly follow-up mammogram recommended. (A) ASSESSMENT CATEGORY: Approximately 10% of breast cancers are not detected by mammography. A normal mammogram should not delay biopsy of a clinically suspicious abnormality. [id number] Electronically Signed: Bulmaro Roman MD at 10:59 EDT ,
--- NOTE | 2024-04-30 09:51 | US_ITS ---
STUDY: ULTRASOUND OF THE FEMALE PELVIS - COMPLETE REASON FOR EXAM: Female, 43 years old. Right sided pain LMP: Patient is status post hysterectomy. TECHNIQUE: Transabdominal and Transvaginal TECHNICAL QUALITY: Adequate. COMPARISON: Comparison is made with prior study dated December 21, 2022. FINDINGS: The patient is status post hysterectomy. The right ovary is visualized. The right ovary measures 2.5 cm x 2.2 cm x 1.5 cm. There is no right ovarian cyst or ovarian mass. There is no visualized right adnexal mass or complex lesion. There is normal arterial and normal venous vascularity. The left ovary is visualized. The left ovary measures 2.7 cm x 2.1 cm x 1.9 cm. There is no left ovarian cyst or ovarian mass. There is no visualized left adnexal mass or complex lesion. There is normal arterial and normal venous vascularity. There is no fluid in the cul-de-sac. The pre void volume of the bladder was 1109 ml. US/Pelvic w/ Transvaginal IMPRESSION: Status post hysterectomy. No acute abnormality is seen. Electronically Signed: Bulmaro Roman MD at 8:52 EDT ,
[2024-04-30 12:29] LABS: Follicle Stimulating Hormone 74.4 mIU/mL; Thyroid Stim Hormone (TSH) 0.972 uIU/mL (0.358-3.740)
== END | disposition home or self-care (01) ==
PROVIDERS: Advanced Practice Midwife; PCP Nurse Practitioner Family; Referring Provider Obstetrics & Gynecology; Visit Provider Obstetrics & Gynecology
DX: Z12.31 Encounter for screening mammogram for malignant neoplasm of breast (principal); Z80.3 Family history of malignant neoplasm of breast; R10.9 Unspecified abdominal pain; R23.2 Flushing
CPT/HCPCS: 36415; 76830; 76856; 77063; 77067; 83001; 83002; 84443

== ENCOUNTER → 2024-06-08 | Outpatient (CLI) | payer OTHER, SELFPAY | END | disposition home or self-care (01) | LOC: LABSPEC 16:49 | PROVIDERS: PCP Nurse Practitioner Family; Referring Provider Nurse Practitioner Women's Health; Visit Provider Nurse Practitioner Women's Health | DX: R30.0 Dysuria (principal) | CPT/HCPCS: 87086; 87088 ==

== ENCOUNTER → 2024-06-30 | Outpatient (CLI) | payer BC, SELFPAY ==
[2024-07-01 08:13] LABS: Cancer Antigen 125 15.3 U/mL (0.0-38.1)
== END | disposition home or self-care (01) ==
LOC: WOBLAB 10:43
PROVIDERS: Nurse Practitioner Women's Health; PCP Nurse Practitioner Family; Referring Provider Obstetrics & Gynecology; Visit Provider Obstetrics & Gynecology
DX: D25.9 Leiomyoma of uterus, unspecified (principal)
CPT/HCPCS: 36415; 86304

== ENCOUNTER → 2024-08-14 | Outpatient (CLI) | payer BC, SELFPAY ==
--- NOTE | 2024-08-14 08:23 | US_ITS ---
STUDY: ULTRASOUND OF THE FEMALE PELVIS - LIMITED REASON FOR EXAM: Female, 44 years old ovarian cyst seen on outside films TECHNIQUE: Transvaginal and transabdominal TECHNICAL QUALITY: Adequate. COMPARISON: April 30, 2024 FINDINGS: Uterus is not visualized status post hysterectomy The right ovary measures 3.4 x 2.4 x 1.5 cm. There is no right ovarian cyst or ovarian mass. There is no visualized right adnexal mass or complex lesion. There is normal arterial and normal venous vascularity. The left ovary measures 3.2 x 2.5 x 2.4 cm. There is a cyst measuring 1.5 x 1.2 x 1 cm. There is no visualized left adnexal mass or complex lesion. There is normal arterial and normal venous vascularity. There is no fluid in the cul-de-sac. US/Pelvic w/ Transvaginal IMPRESSION: Small left ovarian cyst status post hysterectomy Electronically Signed: Morris Sherwood MD at 16:49 EST Reading Location ID and State: [id number] [facility] Tel , Service support ,
== END | disposition home or self-care (01) ==
LOC: US 08:06
PROVIDERS: PCP Nurse Practitioner Family; Referring Provider Obstetrics & Gynecology; Visit Provider Obstetrics & Gynecology
DX: N83.209 Unspecified ovarian cyst, unspecified side (principal)
CPT/HCPCS: 76830; 76856